=== PATIENT | female | born 1960 | race African-American/Black ===

== ENCOUNTER 2024-12-04 17:17 | Inpatient (IN) | payer BC, MEDICAID ==
[~2024-12-04] VITALS: Ht 157.5 cm; Wt 54.9 kg
[~2024-12-04 17:17] MED LIST: ALBU6.7H15 INH; AMLO2.5T45 PO; ARIP30TA2 PO; ASPI-1497 PO; ATEN50TA PO; BUDE180A3 INH; DIPH25CA83 PO; DIVA-18 PO; FURO40TA5 PO; LEVO500T2 PO; LORA10TA7 PO; P20 PO; QUET100T PO; VALP250S22 NG; ZONI100C34 PO
[2024-12-04 17:20] VITALS: O2SAT 100
[2024-12-04] MEDS: FUROSEMIDE 40MG/4ML VIAL IVP ONE (18:00)
[2024-12-04 18:20] LABS: BASOPHILS % 1.2 % (0.0-2.0); EOSINOPHILS % 1.4 % (0.0-5.0); HEMATOCRIT. 35.1 % (36.0-48.0); HEMOGLOBIN. 11.5 g/dL (12.0-16.0); LYMPHOCYTES % 28.2 % (20.0-50.0); MEAN PLATELET VOLUME 9.2 fl (7.4-10.4); MONOCYTES % 12.2 % (2.0-8.0); NEUTROPHILS % 57.0 % (40.0-76.0); PLATELET 351 x1000/uL (130-400); RED BLOOD CELL COUNT 4.31 mill/uL (4.2-5.4); RED CELL DISTRIBUTION WIDTH 15.3 % (11.6-14.6)
[2024-12-04 18:33] LABS: CREATININE 1.0 mg/dL (0.6-1.0); ETHANOL BLOOD < 10 mg/dL (<10); UREA NITROGEN BLOOD 14 mg/dL (9-23)
[2024-12-04 18:34] LABS: TROPONIN I HIGH SENSITIVITY 6 ng/L (3.0-34)
[2024-12-04 18:35] LABS: ASPARTATE AMINOTRANSFERASE 17 IU/L (<34); BILIRUBIN DIRECT < 0.1 mg/dL (<=3.0); BILIRUBIN TOTAL 0.3 mg/dL (0.1-1.0); PROTEIN TOTAL 7.7 g/dL (6.0-8.3)
[2024-12-04] MEDS: POTASSIUM CHLORIDE 20MEQ/PACKET PO ONE (19:41)
[2024-12-04 20:30] VITALS: BP 152/92; PULSE 95; RESP 15; TEMP 37.0852
[2024-12-04] MEDS ORDERED: CALC-1305 PO (21:16)
[2024-12-04] MEDS ORDERED: TRAZ-251 PO (21:16)
[2024-12-04] MEDS ORDERED: OXYB-52 PO (21:16)
[2024-12-04] MEDS ORDERED: FLUT16SP15 BOTHNSTRLS (21:16)
[2024-12-04] MEDS ORDERED: DICL100G58 TP (21:16)
[2024-12-04] MEDS ORDERED: NIFE90TA60 PO (21:16)
[2024-12-04] MEDS ORDERED: ACET-283 PO (21:16)
[2024-12-04] MEDS ORDERED: IPRA4AER IH (21:16)
[2024-12-04] MEDS ORDERED: DIVA-131 PO (21:16)
[2024-12-04] MEDS ORDERED: AZEL137S10 BOTHNSTRLS (21:16)
[2024-12-04] MEDS ORDERED: LIP40 MT (21:22)
[2024-12-04] MEDS ORDERED: MULT-276 MT (21:27)
[2024-12-04] MEDS ORDERED: TRAZODONE HCL 50MG TABLET PO PRN (23:15)
[2024-12-04] MEDS: INSULIN LISPRO 100 UNITS/ML SUBCUT SCH (23:30)
[2024-12-04] MEDS: BLOOD SUGAR DIAGNOSTIC STRIP TEST SCH (23:30)
[2024-12-04] MEDS ORDERED: DEXTROSE 50% WATER 50ML SYRINGE IV PRN (23:30)
[2024-12-05] VITALS: BP 147/87; PULSE 90; RESP 20; TEMP 36.9; O2SAT 95
[2024-12-05] MEDS: DIVALPROEX SODIUM 500MG DR TABLET PO SCH (00:14)
[2024-12-05] MEDS: OXYBUTYNIN CHLORIDE 5MG TABLET PO SCH (00:24)
[2024-12-05] MEDS: LOSARTAN 50 MG TABLET PO SCH (00:24)
[2024-12-05] MEDS ORDERED: IPRATROPIUM/ALBUTEROL 0.5-3(2.5)MG/3ML NEB HHN PRN (00:30)
[2024-12-05] MEDS ORDERED: CLONIDINE 0.1MG TABLET PO PRN (00:30)
[2024-12-05] MEDS ORDERED: ACETAMINOPHEN 325MG TABLET PO PRN (00:30)
[2024-12-05] MEDS ORDERED: ONDANSETRON HCL 4MG/2ML INJ IV PRN (00:30)
[2024-12-05] MEDS ORDERED: DOCUSATE SODIUM 100MG CAPSULE PO PRN (00:30)
[2024-12-05 04:00] VITALS: BP 133/81; PULSE 82; RESP 19; TEMP 36.8; O2SAT 92
[2024-12-05 07:24] LABS: BASOPHILS % 0.5 % (0.0-2.0); EOSINOPHILS % 2.0 % (0.0-5.0); HEMATOCRIT. 32.0 % (36.0-48.0); HEMOGLOBIN. 10.4 g/dL (12.0-16.0); LYMPHOCYTES % 30.8 % (20.0-50.0); MEAN PLATELET VOLUME 9.1 fl (7.4-10.4); MONOCYTES % 12.3 % (2.0-8.0); NEUTROPHILS % 54.4 % (40.0-76.0); PLATELET 305 x1000/uL (130-400); RED BLOOD CELL COUNT 3.98 mill/uL (4.2-5.4); RED CELL DISTRIBUTION WIDTH 15.6 % (11.6-14.6)
[2024-12-05 07:39] LABS: CREATININE 1.0 mg/dL (0.6-1.0); TRIGLYCERIDE 107 mg/dL (0-150); UREA NITROGEN BLOOD 11 mg/dL (9-23)
[2024-12-05 07:40] LABS: LDL CHOLESTEROL 74 mg/dL (5-100)
[2024-12-05 08:00] VITALS: BP 152/78; PULSE 100; RESP 33; TEMP 37.4; O2SAT 96
[2024-12-05 08:15] LABS: HEPATITIS C AB NON REACTIVE (Neg) (Negative)
[2024-12-05] MEDS: NIFEDIPINE XL 60MG TAB PO SCH (09:31)
[2024-12-05] MEDS: FUROSEMIDE 40MG TABLET PO SCH (09:31)
[2024-12-05] MEDS: ENOXAPARIN 40MG/0.4ML SYR SUBCUT SCH (09:32)
[2024-12-05] MEDS: FAMOTIDINE 20MG/2ML VIAL IV SCH (10:10)
[2024-12-05 12:00] VITALS: BP 112/62; PULSE 87; RESP 22; TEMP 36.8; O2SAT 93
[2024-12-05 12:57] LABS: GLUCOSE URINE NEGATIVE (NEGATIVE); KETONES URINE NEGATIVE (NEGATIVE)
[2024-12-05 13:35] LABS: CLARITY URINE CLEAR (CLEAR); COLOR URINE YELLOW (YELLOW); OCCULT BLOOD URINE NEGATIVE (NEGATIVE); PH URINE 7.0 (4.5-8.0); PROTEIN URINE NEGATIVE (NEGATIVE); SPECIFIC GRAVITY URINE 1.013 (1.005-1.030)
[2024-12-05 13:36] LABS: LEUKOCYTE ESTERASE URINE NEGATIVE (NEGATIVE); NITRITE URINE NEGATIVE (NEGATIVE); UROBILINOGEN URINE 1.0 E.U./dL (0.2-1.0)
[2024-12-05 14:00] LABS: *AMPHETAMINES SCREEN URINE NEGATIVE (NEGATIVE); *BARBITURATES SCREEN URINE NEGATIVE (NEGATIVE); *BENZODIAZEPINES SCREEN URINE NEGATIVE (NEGATIVE); *COCAINE SCREEN URINE NEGATIVE (NEGATIVE); CANNABINOID URINE SCREEN NEGATIVE (NEGATIVE); ECSTASY MDMA SCREEN URINE NEGATIVE (NEGATIVE); METHADONE URINE SCREEN NEGATIVE (NEGATIVE); OPIATES URINE SCREEN NEGATIVE (NEGATIVE); PHENCYCLIDINE URINE SCREEN NEGATIVE (NEGATIVE)
[2024-12-05 16:00] VITALS: BP 118/64; PULSE 77; RESP 18; TEMP 37.2; O2SAT 93
[2024-12-05 20:00] VITALS: BP 115/65; PULSE 92; RESP 24; TEMP 37.2; O2SAT 94
[2024-12-05 21:30] LABS: BASOPHILS % 0.7 % (0.0-2.0); EOSINOPHILS % 2.3 % (0.0-5.0); HEMATOCRIT. 29.9 % (36.0-48.0); HEMOGLOBIN. 10.0 g/dL (12.0-16.0); LYMPHOCYTES % 34.5 % (20.0-50.0); MEAN PLATELET VOLUME 9.1 fl (7.4-10.4); MONOCYTES % 9.1 % (2.0-8.0); NEUTROPHILS % 53.4 % (40.0-76.0); PLATELET 321 x1000/uL (130-400); RED BLOOD CELL COUNT 3.69 mill/uL (4.2-5.4); RED CELL DISTRIBUTION WIDTH 15.5 % (11.6-14.6)
[2024-12-05 21:34] LABS: CREATININE 1.1 mg/dL (0.6-1.0); UREA NITROGEN BLOOD 11 mg/dL (9-23)
[2024-12-05 21:36] LABS: PHOSPHORUS 2.3 mg/dL (2.5-4.9)
[2024-12-05] MEDS: ATORVASTATIN CALCIUM 40MG TABLET PO SCH (22:54)
[2024-12-06] VITALS: BP 121/68; PULSE 84; RESP 22; TEMP 36.7; O2SAT 94
[2024-12-06] MEDS: MAGNESIUM 2 G PREMIX 50 ML IV SCH (00:39)
[2024-12-06 04:00] VITALS: BP 126/67; PULSE 78; RESP 20; TEMP 36.6; O2SAT 94
[2024-12-06 06:58] LABS: BASOPHILS % 0.8 % (0.0-2.0); EOSINOPHILS % 2.1 % (0.0-5.0); HEMATOCRIT. 30.9 % (36.0-48.0); HEMOGLOBIN. 10.0 g/dL (12.0-16.0); LYMPHOCYTES % 36.8 % (20.0-50.0); MEAN PLATELET VOLUME 9.2 fl (7.4-10.4); MONOCYTES % 10.4 % (2.0-8.0); NEUTROPHILS % 49.9 % (40.0-76.0); PLATELET 205 x1000/uL (130-400); RED BLOOD CELL COUNT 3.73 mill/uL (4.2-5.4); RED CELL DISTRIBUTION WIDTH 15.6 % (11.6-14.6)
[2024-12-06 07:03] LABS: CREATININE 1.0 mg/dL (0.6-1.0); UREA NITROGEN BLOOD 9 mg/dL (9-23)
[2024-12-06 08:00] VITALS: BP 132/59; PULSE 82; RESP 22; TEMP 37.1; O2SAT 96
[2024-12-06] MEDS: ACETAMINOPHEN 325MG TABLET PO PRN ×2 (09:51→15:42)
[2024-12-06] MEDS ORDERED: POTA-205 MT (10:26)
[2024-12-06] MEDS ORDERED: LOSA50TA41 PO (10:26)
[2024-12-06] MEDS ORDERED: NIFE-32 PO (10:26)
[2024-12-06] MEDS ORDERED: FURO-151 MT (10:26)
[2024-12-06 12:00] VITALS: BP 144/88; PULSE 88; RESP 25; TEMP 36.4; O2SAT 94
[2024-12-06 15:29] VITALS: BP 129/69; PULSE 89; RESP 18; TEMP 98.2
== END 2024-12-06 16:15 | disposition home or self-care (01) | DRG 291 ==
LOC: ER 17:17 → EDBEDREQSVC 18:11 → EDBEDREQTM 18:55 → EDBEDREQ 18:55 → ENRESERV 19:07 → 3WST 19:59
PROVIDERS: ADMIT Internal Medicine; ATTEND Internal Medicine
DX: I11.0 Hypertensive heart disease with heart failure (principal); I50.41 Acute combined systolic (congestive) and diastolic (congestive) heart failure; Z59.00 Homelessness unspecified; E87.6 Hypokalemia; E11.9 Type 2 diabetes mellitus without complications; D64.9 Anemia, unspecified; F14.10 Cocaine abuse, uncomplicated; F17.210 Nicotine dependence, cigarettes, uncomplicated; I50.9 Heart failure, unspecified; I87.8 Other specified disorders of veins; L85.3 Xerosis cutis; Z82.49 Family history of ischemic heart disease and other diseases of the circulatory system
CPT/HCPCS: 36415; 71045; 80048; 80061; 80076; 80305; 80320; 81003; 82140; 82962; 83036; 83735; 83880; 84100; 84484; 85025; 86705; 87340; 87493; 93005; 93970; 99291; A4606; J1308; J1650; J1938; J3475; G0480

== ENCOUNTER 2024-12-08 18:50 | Emergency (ER) | payer BC, MEDICAID ==
[~2024-12-08] VITALS: Ht 160 cm; Wt 60.0 kg
[~2024-12-08 18:50] MED LIST changes: +ACET-283 PO; -ALBU6.7H15 INH; -AMLO2.5T45 PO; -ARIP30TA2 PO; -ASPI-1497 PO; -ATEN50TA PO; +AZEL137S10 BOTHNSTRLS; -BUDE180A3 INH; +CALC-1305 PO; +DICL100G58 TP; -DIPH25CA83 PO; -DIVA-18 PO; +DIVA-75 PO; +FLUT16SP15 BOTHNSTRLS; +FURO-151 MT; -FURO40TA5 PO; +IPRA4AER IH; -LEVO500T2 PO; +LIP40 MT; -LORA10TA7 PO; +LOSA50TA41 PO; +MULT-276 MT; +NIFE-32 PO; +NIFE90TA60 PO; +OXYB-52 PO; -P20 PO; +POTA-205 MT; -QUET100T PO; +TRAZ-251 PO; -VALP250S22 NG; -ZONI100C34 PO
[2024-12-08 18:55] VITALS: O2SAT 97
[2024-12-08 19:11] VITALS: BP 158/103; PULSE 99; RESP 14; TEMP 36.6; O2SAT 97
== END 2024-12-08 22:43 | disposition home or self-care (01) ==
LOC: ER 18:50
DX: M25.552 Pain in left hip (principal); E11.9 Type 2 diabetes mellitus without complications; I10 Essential (primary) hypertension; Z79.899 Other long term (current) drug therapy
CPT/HCPCS: 99282

== ENCOUNTER 2024-12-09 14:46 | Emergency (ER) | payer BC, MEDICAID ==
[~2024-12-09] VITALS: Ht 167.6 cm; Wt 65.0 kg
[2024-12-09 14:48] VITALS: O2SAT 96
[2024-12-09 15:16] VITALS: BP 142/73; PULSE 100; RESP 16; TEMP 36.8; O2SAT 100
== END 2024-12-09 19:30 | disposition home or self-care (01) ==
LOC: ER 14:46
DX: R69 Illness, unspecified (principal); F14.10 Cocaine abuse, uncomplicated; F12.10 Cannabis abuse, uncomplicated; E11.9 Type 2 diabetes mellitus without complications; I10 Essential (primary) hypertension; Z59.00 Homelessness unspecified; Z79.899 Other long term (current) drug therapy
CPT/HCPCS: 99282

== ENCOUNTER 2024-12-10 09:07 | Emergency (ER) | payer BC, MEDICAID ==
[~2024-12-10] VITALS: Ht 157.5 cm; Wt 68.9 kg
[2024-12-10 09:11] VITALS: O2SAT 99
[2024-12-10 09:19] VITALS: BP 132/81; PULSE 86; RESP 18; TEMP 36.8; O2SAT 99
== END 2024-12-10 15:42 | disposition home or self-care (01) ==
LOC: ER 09:07
DX: Z00.8 Encounter for other general examination (principal); I10 Essential (primary) hypertension; F14.90 Cocaine use, unspecified, uncomplicated; Z79.899 Other long term (current) drug therapy; F12.90 Cannabis use, unspecified, uncomplicated; Z59.00 Homelessness unspecified
CPT/HCPCS: 99281